=== PATIENT | male | born 1945 | race Asian ===

== ENCOUNTER 2016-07-16 01:31 | Emergency (ER) | payer MEDICARE ==
[~2016-07-16] VITALS: Ht 167.6 cm; Wt 63.5 kg
[2016-07-16 02:01] VITALS: BP 138/76; PULSE 80; RESP 16; TEMP 98.4; O2SAT 98
--- NOTE | 2016-07-16 02:01 | NUR ---
Patient to ER bed 5 to gown for evaluation. Side rails up. Report received from Karen CHENG.
--- NOTE | 2016-07-16 02:03 | NUR ---
Pt in bed 5 with c/o urinary retention. Dr Ortiz aware.
--- NOTE | 2016-07-16 02:30 | NUR ---
ER at bedside examining patient.
--- NOTE | 2016-07-16 02:55 | NUR ---
# 16 FR Rios catheter with use of sterile technique. Immediate return of 800 cc dark yellow urine noted. Bedside drainage bag placed below level of bladder. Urine sample collected and sent to lab. Pt tolerated procedure well. pt verbalizes pain relief.
[2016-07-16 03:08] LABS: BILIRUBIN,URINE NEGATIVE (NEGATIVE); BLOOD, URINE 3+ (NEGATIVE); CLARITY/URINE CLOUDY (CLEAR); COLOR,URINE YELLOW (YELLOW); GLUCOSE,URINE NEGATIVE (NEGATIVE); KETONES,URINE NEGATIVE (NEGATIVE); LEUKOCYTE ESTERASE ,URINE NEGATIVE (NEGATIVE); NITRITE, URINE NEGATIVE (NEGATIVE); PROTEIN URINE TRACE (NEGATIVE); UROBILINOGEN,URINE 0.2 (0.2-1.0)
[2016-07-16 03:16] LABS: BACTERIA,URINE RARE /HPF (None Seen); MUCUS,URINE None Seen /LPF (None Seen); RBC,URINE >100 /HPF (0-3); WBC,URINE 0-3 /HPF (0-3)
[2016-07-16 04:29] VITALS: BP 128/76; PULSE 78; RESP 16; TEMP 98.4; O2SAT 98
--- NOTE | 2016-07-16 04:30 | NUR ---
Patient given written and verbal discharge instructions and verbalizes understanding. ER MD discussed with patient the results and treatment provided. Given copies of tests performed in ER. Patient in stable condition. ID arm band removed. Rx of doxycycline given. Patient educated on pain management and to follow up with PMD. Pain Scale 0/10. Opportunity for questions provided and answered.
== END 2016-07-16 04:29 | disposition home or self-care (01) ==
LOC: SED 01:31
DX: R33.9 Retention of urine, unspecified (principal); I10 Essential (primary) hypertension
CPT/HCPCS: 81000-TC; 99284

== ENCOUNTER 2017-09-28 06:12 | Emergency (ER) | payer MEDICARE ==
[~2017-09-28] VITALS: Ht 167.6 cm; Wt 65.8 kg
[2017-09-28 06:16] VITALS: BP_SYST 165
[2017-09-28 07:05] VITALS: BP_SYST 165
== END 2017-09-28 07:05 | disposition home or self-care (01) ==
LOC: SED 06:12
DX: R33.9 Retention of urine, unspecified (principal)
CPT/HCPCS: 99284

== ENCOUNTER 2017-10-09 07:02 | Emergency (ER) | payer MEDICARE ==
[~2017-10-09] VITALS: Ht 167.6 cm; Wt 65.8 kg
[2017-10-09 07:09] VITALS: BP_SYST 133
[2017-10-09 07:54] LABS: BILIRUBIN,URINE NEGATIVE (NEGATIVE); BLOOD, URINE 2+ (NEGATIVE); CLARITY/URINE CLEAR (CLEAR); COLOR,URINE YELLOW (YELLOW); GLUCOSE,URINE NEGATIVE (NEGATIVE); KETONES,URINE NEGATIVE (NEGATIVE); LEUKOCYTE ESTERASE ,URINE NEGATIVE (NEGATIVE); NITRITE, URINE NEGATIVE (NEGATIVE); PROTEIN URINE NEGATIVE (NEGATIVE); UROBILINOGEN,URINE 0.2 (0.2-1.0)
[2017-10-09 08:15] VITALS: BP_SYST 132
[2017-10-09 08:16] LABS: BACTERIA,URINE FEW /HPF (None Seen); RBC,URINE 20-50 /HPF (0-3); WBC,URINE 0-3 /HPF (0-3)
[2017-10-09 08:17] LABS: MUCUS,URINE None Seen /LPF (None Seen)
== END 2017-10-09 08:15 | disposition home or self-care (01) ==
LOC: SED 07:02
DX: N40.0 Benign prostatic hyperplasia without lower urinary tract symptoms (principal); Z46.6 Encounter for fitting and adjustment of urinary device
CPT/HCPCS: 81000-TC; 99284

== ENCOUNTER 2017-10-12 10:36 | Emergency (ER) | payer MEDICARE ==
[~2017-10-12] VITALS: Ht 167.6 cm; Wt 65.8 kg
[2017-10-12 10:40] VITALS: BP_SYST 145
[2017-10-12 12:26] LABS: BILIRUBIN,URINE NEGATIVE (NEGATIVE); BLOOD, URINE 3+ (NEGATIVE); CLARITY/URINE CLEAR (CLEAR); COLOR,URINE YELLOW (YELLOW); GLUCOSE,URINE NEGATIVE (NEGATIVE); KETONES,URINE NEGATIVE (NEGATIVE); LEUKOCYTE ESTERASE ,URINE TRACE (NEGATIVE); NITRITE, URINE NEGATIVE (NEGATIVE); PH,URINE 5.5 (5.0-8.0); PROTEIN URINE 1+ (NEGATIVE); UROBILINOGEN,URINE 0.2 (0.2-1.0)
[2017-10-12 12:41] LABS: BACTERIA,URINE RARE /HPF (None Seen); MUCUS,URINE None Seen /LPF (None Seen); RBC,URINE 20-50 /HPF (0-3)
[2017-10-12 12:44] LABS: WBC,URINE 0-3 /HPF (0-3)
[2017-10-12 13:10] VITALS: BP_SYST 132
== END 2017-10-12 13:10 | disposition home or self-care (01) ==
LOC: SED 10:36
DX: N39.0 Urinary tract infection, site not specified (principal); R33.9 Retention of urine, unspecified; E78.5 Hyperlipidemia, unspecified; N40.0 Benign prostatic hyperplasia without lower urinary tract symptoms; I10 Essential (primary) hypertension
CPT/HCPCS: 81000-TC; 99284